=== PATIENT | male | born 1960 | race African-American/Black ===

== ENCOUNTER 2019-07-26 19:00 | Inpatient (IN) | payer OTHER ==
[~2019-07-26] VITALS: Ht 193 cm; Wt 65.8 kg
[2019-07-26 20:43] LABS: HEMATOCRIT. 26.6 % (42.0-52.0); HEMOGLOBIN. 8.8 g/dL (14.0-18.0); MEAN CORPUSCULAR HEMOGLOBIN 30.5 pg (28.0-32.0); MEAN CORPUSCULAR VOLUME 92.1 fL (80.0-94.0); MEAN PLATELET VOLUME 10.4 fl (7.4-10.4); PLATELET 64 x1000/uL (130-400); RED BLOOD CELL COUNT 2.89 mill/uL (4.7-6.1); RED CELL DISTRIBUTION WIDTH 15.5 % (11.6-14.6)
[2019-07-26 20:59] LABS: PLATELET ESTIMATE DECREASED
[2019-07-26 21:38] LABS: CHLORIDE 97 mEq/L (98-107)
[2019-07-27] VITALS (7 sets, daily range): BP systolic 90–121; BP diastolic 53–66
[2019-07-27 03:07] LABS: CLARITY URINE CLEAR (CLEAR); COLOR URINE DARK YELLOW (YELLOW); KETONES URINE NEGATIVE (NEGATIVE); LEUKOCYTE ESTERASE URINE NEGATIVE (NEGATIVE); NITRITE URINE NEGATIVE (NEGATIVE); OCCULT BLOOD URINE NEGATIVE (NEGATIVE); PROTEIN URINE 1+ (NEGATIVE); SPECIFIC GRAVITY URINE 1.033 (1.005-1.030)
[2019-07-27] MEDS ORDERED: AZITHROMYCIN 500 MG TABLET PO ONE (03:45)
[2019-07-27] MEDS ORDERED: HYDR-3281 MT (04:22)
[2019-07-27] MEDS ORDERED: HYDR-3280 MT (04:22)
[2019-07-27] MEDS: HYDROMORPHONE HCL 2MG TABLET PO PRN ×2 (05:26→22:05)
[2019-07-27] MEDS ORDERED: IOHEXOL-350 100 ML BOTTLE ONE (07:04)
[2019-07-27] MEDS ORDERED: HEPARIN 5000 UNITS/ML VIAL SUBCUT SCH (09:00)
[2019-07-27] MEDS: HYDROCODONE/ACETAMINOPHEN 10/325MG TABLET PO PRN ×2 (09:43→17:48)
[2019-07-27] MEDS ORDERED: ACETAMINOPHEN 325MG TABLET PO PRN (12:00)
[2019-07-27] MEDS ORDERED: ONDANSETRON HCL 4MG/2ML INJ IV PRN (12:00)
[2019-07-27] MEDS ORDERED: ASPIRIN 81MG EC TABLET PO SCH (13:45)
[2019-07-27] MEDS: PIPERACILLIN/TAZOBACTAM 3.375 G in DEXT 5% WATER 100 ML IV SCH ×2 (13:47→17:22)
[2019-07-27] MEDS: DEXT 5%/0.9% NACL 1,000 ML IV SCH (13:48)
[2019-07-27] MEDS: NITROGLYCERIN OINT 1GM/INCH UDPKT TD SCH ×2 (14:00→22:05)
[2019-07-27] MEDS ORDERED: VANCOMYCIN 1250MG in DEXTROSE 5% WATER 250ML IV SCH (14:00)
[2019-07-27 16:49] LABS: CHLORIDE 98 mEq/L (98-107)
[2019-07-27 16:56] LABS: MEAN CORPUSCULAR HEMOGLOBIN 30.2 pg (28.0-32.0); MEAN PLATELET VOLUME 9.3 fl (7.4-10.4); RED BLOOD CELL COUNT 2.16 mill/uL (4.7-6.1); RED CELL DISTRIBUTION WIDTH 15.2 % (11.6-14.6)
[2019-07-27 17:02] LABS: HEMATOCRIT. 19.9 % (42.0-52.0); HEMOGLOBIN. 6.5 g/dL (14.0-18.0); INR 1.1; PLATELET 41 x1000/uL (130-400); PROTHROMBIN TIME 12.4 sec (9.6-11.0)
[2019-07-27 17:20] LABS: PLATELET ESTIMATE MARKEDLY DECREASED
[2019-07-27 18:24] LABS: HEMATOCRIT 21.6 % (42.0-52.0); HEMOGLOBIN 7.2 g/dL (14.0-18.0)
[2019-07-27] MEDS ORDERED: TRAZODONE HCL 50MG TABLET PO PRN (21:00)
[2019-07-28] VITALS (7 sets, daily range): BP systolic 80–104; BP diastolic 49–67
[2019-07-28] MEDS: PIPERACILLIN/TAZOBACTAM 3.375 G in DEXT 5% WATER 100 ML IV SCH ×4 (00:11→18:34)
[2019-07-28] MEDS ORDERED: VANCOMYCIN 1250MG in DEXTROSE 5% WATER 250ML IV SCH ×2 (06:00→15:00)
[2019-07-28] MEDS: NITROGLYCERIN OINT 1GM/INCH UDPKT TD SCH ×2 (06:59→18:33)
[2019-07-28 07:33] LABS: HEMATOCRIT. 22.7 % (42.0-52.0); HEMOGLOBIN. 7.4 g/dL (14.0-18.0); MEAN CORPUSCULAR HEMOGLOBIN 30.2 pg (28.0-32.0); MEAN CORPUSCULAR VOLUME 92.6 fL (80.0-94.0); MEAN PLATELET VOLUME 10.5 fl (7.4-10.4); RED BLOOD CELL COUNT 2.45 mill/uL (4.7-6.1); RED CELL DISTRIBUTION WIDTH 15.5 % (11.6-14.6)
[2019-07-28 07:39] LABS: CHLORIDE 98 mEq/L (98-107)
[2019-07-28 07:46] LABS: LDL CHOLESTEROL 42 mg/dL (5-100)
[2019-07-28 07:47] LABS: HDL CHOLESTEROL 16 mg/dL (40-59)
[2019-07-28 07:49] LABS: T4 FREE 1.32 ng/dL (0.76-1.46); TOTAL IRON BINDING CAPACITY 112 ug/dL (250-450)
[2019-07-28 08:20] LABS: PLATELET 48 x1000/uL (130-400)
[2019-07-28] MEDS: HYDROCODONE/ACETAMINOPHEN 10/325MG TABLET PO PRN (08:33)
[2019-07-28 08:36] LABS: PLATELET ESTIMATE DECREASED
[2019-07-28] MEDS: FERROUS SULFATE 325MG TABLET PO SCH ×2 (09:33→18:34)
[2019-07-28] MEDS: DEXT 5%/0.9% NACL 1,000 ML IV SCH (10:16)
[2019-07-28] MEDS: HYDROMORPHONE HCL 2MG TABLET PO PRN (13:24)
== END 2019-07-28 20:32 | disposition short-term general hospital (02) | DRG 871 ==
LOC: ER 19:00 → 7WST 07-27 01:22 → EDBEDREQ 07-27 01:25 → EDBEDREQDT 07-27 01:25 → EDBEDREQTM 07-27 01:25 → ENRESERV 07-27 02:37 → 5WST 07-27 23:32
PROVIDERS: ADMIT Internal Medicine; ATTEND Internal Medicine
DX: A41.9 Sepsis, unspecified organism (principal); E43 Unspecified severe protein-calorie malnutrition; J18.9 Pneumonia, unspecified organism; J96.00 Acute respiratory failure, unspecified whether with hypoxia or hypercapnia; E87.1 Hypo-osmolality and hyponatremia; I47.1 Supraventricular tachycardia; J93.9 Pneumothorax, unspecified; D50.9 Iron deficiency anemia, unspecified; D69.6 Thrombocytopenia, unspecified; E86.0 Dehydration; E86.1 Hypovolemia; I95.9 Hypotension, unspecified; E87.8 Other disorders of electrolyte and fluid balance, not elsewhere classified; I10 Essential (primary) hypertension; I45.10 Unspecified right bundle-branch block; I49.5 Sick sinus syndrome; I73.9 Peripheral vascular disease, unspecified; N19 Unspecified kidney failure; Z86.718 Personal history of other venous thrombosis and embolism; Z87.891 Personal history of nicotine dependence; Z92.21 Personal history of antineoplastic chemotherapy; Z92.3 Personal history of irradiation; Z95.820 Peripheral vascular angioplasty status with implants and grafts; Z03.818 Encounter for observation for suspected exposure to other biological agents ruled out; Z85.819 Personal history of malignant neoplasm of unspecified site of lip, oral cavity, and pharynx
CPT/HCPCS: 36415; 71045; 71275; 80048; 80053; 80061; 81003; 83540; 83550; 83735; 83880; 84439; 84443; 84484; 85014; 85018; 85025; 87070; 93005; 93970; 99285; J1644; J2543; J3370; J7042; J7060; Q9967; U0003-CS

== ENCOUNTER 2019-08-15 19:51 | Emergency (ER) | payer OTHER ==
[~2019-08-15] VITALS: Ht 188 cm; Wt 77.0 kg
[~2019-08-15 19:51] MED LIST: HYDR-3280 MT; HYDR-3281 MT
[2019-08-15 23:06] LABS: BASOPHILS % 0.1 % (0.0-2.0); HEMOGLOBIN. 7.4 g/dL (14.0-18.0); LYMPHOCYTES % 7.3 % (20.0-50.0); MEAN CORPUSCULAR HEMOGLOBIN 30.7 pg (28.0-32.0); MEAN CORPUSCULAR VOLUME 91.2 fL (80.0-94.0); MEAN PLATELET VOLUME 10.3 fl (7.4-10.4); MONOCYTES % 6.3 % (2.0-8.0); NEUTROPHILS % 86.3 % (40.0-76.0); RED BLOOD CELL COUNT 2.41 mill/uL (4.7-6.1); RED CELL DISTRIBUTION WIDTH 15.7 % (11.6-14.6)
[2019-08-15 23:12] LABS: CHLORIDE 107 mEq/L (98-107)
[2019-08-15] MEDS ORDERED: SODIUM CHLORIDE 0.9% 1,000 ML IV ONE (23:24)
[2019-08-16] MEDS ORDERED: PIPERACILLIN/TAZ 3.375G PREMIX 50 ML IV ONE
[2019-08-16] MEDS ORDERED: VANCOMYCIN 1 G PREMIX 200 ML IV ONE
[2019-08-16] MEDS ORDERED: SODIUM CHLORIDE 0.9% 1,000 ML IV NR (00:24)
[2019-08-16] MEDS ORDERED: PIPERACILLIN/TAZ 3.375G PREMIX 50 ML IV NR (00:30)
[2019-08-16 01:03] VITALS: BP 117/76
[2019-08-16 09:14] LABS: PLATELET 40 x1000/uL (130-400)
== END 2019-08-16 01:51 | disposition short-term general hospital (02) ==
LOC: ER 19:55
DX: R53.1 Weakness (principal); J90 Pleural effusion, not elsewhere classified; D69.6 Thrombocytopenia, unspecified; Z85.89 Personal history of malignant neoplasm of other organs and systems; Z79.899 Other long term (current) drug therapy
CPT/HCPCS: 36415; 71045; 80053; 83605; 85025; 87040; 96365; 96368; 99285; J2543; J3370; J7030